=== PATIENT | male | born 1990 | race Caucasian/White ===

== ENCOUNTER 2018-05-29 19:06 | Emergency (ER) | payer OTHER ==
[2018-05-29] MEDS ORDERED: Albuterol/Ipratropium 3.0-0.5 MG/3 ML Neb Soln NEB ONE (19:22)
--- NOTE | 2018-05-29 19:28 | EDM.PDOC ---
ED HPI GENERAL MEDICAL PROBLEM - General Chief Complaint: Respiratory Problem Stated Complaint: SOB,COUGH Time Seen by Provider: 05/29/18 19:26 Source of Information: Reports: Patient History Limitations: Reports: No Limitations - History of Present Illness INITIAL COMMENTS - FREE TEXT/NARRATIVE: HISTORY AND PHYSICAL: History of present illness: Patient is a 27-year-old male here with complaint of cough, shortness of breath , sore throat, nasal congestion, chills x 4 days. He states that the cough and shortness of breath started today. He reports a history of asthma although he has not had an asthma attack in 5 years and does not have an inhaler. He denies any nausea or vomiting but states he had a little bit of diarrhea yesterday. He denies any chest pain. Review of systems: As per history of present illness and below otherwise all systems reviewed and negative. Past medical history: As per history of present illness and as reviewed below otherwise noncontributory. Surgical history: As per history of present illness and as reviewed below otherwise noncontributory. Social history: No reported history of drug or alcohol abuse. Family history: As per history of present illness and as reviewed below otherwise noncontributory. Physical exam: General: Patient sitting comfortably in no acute distress and nontoxic appearing HEENT: Atraumatic, normocephalic, pupils reactive, negative for conjunctival pallor or scleral icterus, mucous membranes moist, throat clear, neck supple, nontender, trachea midline. No meningeal signs. Lungs: Breath sounds diminished with expiratory wheezing throughout all lung aguero, breath sounds equal bilaterally, chest nontender. Heart: S1S2, regular, negative for clicks, rubs, or overt murmur. Abdomen: Soft, nondistended, nontender. Negative for masses or hepatosplenomegaly. Negative for costovertebral tenderness. Pelvis: Stable nontender. Genitourinary: Deferred. Rectal: Deferred. Extremities: Atraumatic, negative for cords or calf pain. Neurovascular unremarkable. Neuro: Awake, alert, oriented. Cranial nerves II through XII unremarkable. Cerebellum unremarkable. Motor and sensory unremarkable throughout. Exam nonfocal. Notes: Diagnostics: Chest x-ray Therapeutics: DuoNeb Prescriptions: Ventolin inhaler Impression: Acute bronchitis Plan: 1. Use inhaler as directed. Tylenol or Motrin as needed 2. Follow-up with primary care provider 3. Return to ED as needed as discussed Definitive disposition and diagnosis as appropriate pending reevaluation and review of above. body Pain Score (Numeric/FACES): 4 - Related Data Allergies Allergy/AdvReac Type Severity Reaction Status Date / Time No Known Allergies Allergy Verified 05/29/18 19:19 Home Meds: Home Meds Albuterol [Ventolin HFA] 1 puff .XX ASDIRECTED #1 inhaler 05/29/18 [Rx] Past Medical History Respiratory History: Reports: Asthma - Past Surgical History Male Surgical History: Reports: Nephrectomy Social & Family History - Family History Family Medical History: Noncontributory - Tobacco Use Smoking Status *Q: Former Smoker Used Tobacco, but Quit: Yes Month/Year Tobacco Last Used: 1 - Recreational Drug Use Recreational Drug Use: No ED ROS GENERAL - Review of Systems Review Of Systems: ROS reveals no pertinent complaints other than HPI. ED EXAM, GENERAL - Physical Exam Exam: See Below (see dictation) Course - Vital Signs Last Recorded V/S: Last Vital Signs Temp 36.6 C 05/29/18 19:06 Pulse 83 05/29/18 19:06 Resp 20 05/29/18 19:06 BP 133/80 05/29/18 19:06 Pulse Ox 98 05/29/18 19:06 - Orders/Labs/Meds Orders: Active Orders 24 hr Category Date Time Status RT Aerosol Therapy [RC] ASDIRECTED Care 05/29/18 19:22 Active Chest 1V Frontal [CR] Stat Exams 05/29/18 19:24 Taken Meds: Medications Discontinued Medications Generic Name Dose Route Start Last Admin Trade Name Evelin PRN Reason Stop Dose Admin Albuterol/Ipratropium 3 ml 05/29/18 19:22 05/29/18 19:29 Duoneb 3.0-0.5 Mg/3 Ml NEB 05/29/18 19:23 3 ml ONETIME ONE Administration Departure - Departure Time of Disposition: 20:30 Disposition: Home, Self-Care 01 Condition: Good Clinical Impression: Acute bronchitis - Discharge Information Prescriptions: Albuterol [Ventolin HFA] 1 puff .XX ASDIRECTED #1 inhaler Forms: ED Department Discharge Additional Instructions: The following information is given to patients seen in the emergency department who are being discharged to home. This information is to outline your options for follow-up care. We provide all patients seen in our emergency department with a follow-up referral. The need for follow-up, as well as the timing and circumstances, are variable depending upon the specifics of your emergency department visit. If you don't have a primary care physician on staff, we will provide you with a referral. We always advise you to contact your personal physician following an emergency department visit to inform them of the circumstance of the visit and for follow-up with them and/or the need for any referrals to a consulting specialist. The emergency department will also refer you to a specialist when appropriate. This referral assures that you have the opportunity for follow-up care with a specialist. All of these measure are taken in an effort to provide you with optimal care, which includes your follow-up. Under all circumstances we always encourage you to contact your private physician who remains a resource for coordinating your care. When calling for follow-up care, please make the office aware that this follow-up is from your recent emergency room visit. If for any reason you are refused follow-up, please contact the [facility] Emergency Department at and asked to speak to the emergency department charge nurse. [facility] [address] [place] [address] [address] 1. Use inhaler as directed. Tylenol or Motrin as needed 2. Follow-up with primary care provider 3. Return to ED as needed as discusse - My Orders Last 24 Hours: My Active Orders 05/29/18 19:22 RT Aerosol Therapy [RC] ASDIRECTED 05/29/18 19:24 Chest 1V Frontal [CR] Stat - Assessment/Plan Last 24 Hours: My Active Orders 05/29/18 19:22 RT Aerosol Therapy [RC] ASDIRECTED 05/29/18 19:24 Chest 1V Frontal [CR] Stat
--- NOTE | 2018-05-31 12:07 | CR ---
EXAM DATE: 05/29/18 PATIENT'S AGE: 27 Patient: KALYN MONTANA Facility: [place], [place] Site . Site : 1990 Study: XRay Chest [id number]/25/2018 7:55:50 PM Ordering Physician: Doctor Sanders Final Report: INDICATION: pain/sob/cough INDICATION: Shortness of breath. Cough. TECHNIQUE: Chest 1 view. COMPARISON: None FINDINGS: Cardiovascular and mediastinum: Heart size and vasculature are normal in caliber and appearance. Mediastinum is within normal limits. Lungs and pleural space: Lungs are clear. No sign of infiltrate or mass. No sign of pleural effusion. No pneumothorax. Bones and soft tissues: No significant findings. IMPRESSION: Lungs are clear. Dictated by Epifanio Rios MD @ 05/29/2018 8:02:08 PM Dictated by: Epifanio Rios MD @ 05/29/2018 20:02:17 (Electronic Signature) Report Signed by Proxy. EVE
== END 2018-05-29 20:37 | disposition home or self-care (01) ==
LOC: MW.ED 19:06
DX: J20.9 Acute bronchitis, unspecified (principal); Z87.891 Personal history of nicotine dependence
CPT/HCPCS: 71045; 71045-26; 87081; 87880-QW; 94640; 99285-25; J7620-GY

== ENCOUNTER 2019-04-01 07:35 | Day surgery (SDC) | payer OTHER ==
[~2019-04-01 07:35] MED LIST: Lactated Ringers 1,000 ML IV SCH
--- NOTE | 2019-04-01 08:28 | PCM.PREANE ---
Preanesthetic Assessment - Anesthesia/Transfusion/Family Hx Anesthesia History: Prior Anesthesia Without Reaction Family History of Anesthesia Reaction: No Transfusion History: No Prior Transfusion(s) - Review of Systems General: No Symptoms Pulmonary: No Symptoms Gastrointestinal: No Symptoms Neurological: No Symptoms Other: Reports: None - Physical Assessment NPO Status Date: 03/31/19 Height: 5 ft 11 in Weight: 89.358 kg ASA Class: 2 Airway Class: Mallampati = 2 Dentition: Reports: Broken Tooth/Teeth, Caries ROM/Head Extension: Full Lungs: Clear to Auscultation, Normal Respiratory Effort Cardiovascular: Regular Rate, Regular Rhythm - Allergies Allergies/Adverse Reactions: Allergies Allergy/AdvReac Type Severity Reaction Status Date / Time Penicillins Allergy Anaphylactic Verified 03/30/19 11:46 Shock - Blood Blood Available: No - Anesthesia Plan Pre-Op Medication Ordered: None - Acknowledgements Anesthesia Type Planned: General Anesthesia Pt an Appropriate Candidate for the Planned Anesthesia: Yes Alternatives and Risks of Anesthesia Discussed w Pt/Guardian: Yes Pt/Guardian Understands and Agrees with Anesthesia Plan: Yes Additional Comments: anes prob list: asthma, last exac 2 months ago, had oral steroids x 5 days at that time PLAN: tiva PreAnesthesia Questionnaire Respiratory History: Reports: Asthma Gastrointestinal History: Reports: GERD Genitourinary History: Reports: Renal Calculus, Renal Disease Musculoskeletal History: Reports: Fracture Other Musculoskeletal History: hx of fx wrist - Past Surgical History Female Surgical History: Male Surgical History: Reports: Lithotripsy (ESWL), Nephrectomy Other Male Surgeries/Procedures: hx of right Nephrectomy for non-functioning kidney - SUBSTANCE USE Smoking Status *Q: Current Every Day Smoker Tobacco Use Within Last Twelve Months: Cigarettes, Smokeless Tobacco Recreational Drug Use History: No - HOME MEDS Home Medications: Home Meds Albuterol [Ventolin HFA] 1 puff INH ASDIRECTED PRN 03/30/19 [History] Fluticasone/Vilanterol [Breo Ellipta 100-25 MCG Inhalation Kit] 1 inh INH DAILY 03/30/19 [History] Ipratropium/Albuterol Sulfate [Iprat-Albut 0.5-3(2.5) mg/3 ml] 1 dose NEB ASDIRECTED PRN 03/30/19 [History] - CURRENT (IN HOUSE) MEDS Current Meds: Current Medications Lactated Ringer's (Ringers, Lactated) 1,000 mls @ 125 mls/hr IV ASDIRECTED JUAN DAVID
[2019-04-01] MEDS ORDERED: Midazolam 1 MG/ML 2 ML SDV ONE (08:45)
[2019-04-01] MEDS ORDERED: Propofol 200 MG/20 ML SDV ONE (08:45)
[2019-04-01] MEDS ORDERED: Benzocaine 20% Topical Spray UD MUCMEM ONE (09:19)
--- NOTE | 2019-04-01 09:36 | PCM.OPNOTE ---
- General Post-Op/Procedure Note Date of Surgery/Procedure: 04/01/19 Operative Procedure(s): egd w bx Findings: see [id number] Pre Op Diagnosis: gerd Post-Op Diagnosis: Same Anesthesia Technique: Moderate Sedation Primary Surgeon: Aamir Hodge Pathology: egd bx Complications: None Condition: Good
--- NOTE | 2019-04-01 11:40 | OR ---
SURGEON: Aamir Hodge MD DATE OF PROCEDURE: 04/01/2019 PREOPERATIVE DIAGNOSIS: Acid reflux. POSTOPERATIVE DIAGNOSIS: Acid reflux. PROCEDURE PERFORMED: Esophagogastroduodenoscopy with biopsy. DESCRIPTION OF PROCEDURE: EGD: The patient was taken to the endoscopy room, and with the CUTTER OPERATOR BRICK, Diprivan was administered. A well-lubricated EGD scope was gently inserted through the oropharynx, down the esophagus, passing through the gastroesophageal junction, into the stomach. The mucosa was examined upon the passage. Any etiology will be noted. Once in the stomach, we continued to advance to the distal antrum, passed through the pylorus into the second portion of the duodenum. Again, the mucosa was examined for any abnormality and etiology. The scope was then retrieved back to the stomach and then retroflexed to look at the fundus of the stomach. If a biopsy was indicated, we will biopsy the antrum, body, and gastroesophageal junction. The air will be sucked out while the scope is retrieved to reduce the patient's discomfort. The patient tolerated the procedure well. There were no intraoperative complications. Dr. Hodge was present through the whole procedure. Prior to surgery, a time-out had been called, the patient identified, procedure identified and antibiotic administered. FINDINGS: 1. The patient is easily sedated with CUTTER OPERATOR BRICK and Diprivan, the patient is soundly snoring. 2. The patient's proximal esophagus and oropharynx are free of disease, stricture, or inflammation. Distal esophagus at distance of 32 shows significant salmon-colored change, consistent with acid reflux. Stomach rugae are pretty flat and also possible atrophic. Antrum is a little bit inflamed. Duodenum was grossly normal. Retrieved back to the stomach. Retroflexed look at the fundus of stomach, there was no hiatal hernia. Biopsy done at antrum, body, and GE junction at 32 and sucked out the gas while scope pulling out. GINI / JOHANA /[id number]
== END 2019-04-01 10:30 | disposition home or self-care (01) ==
LOC: MW.SDS 07:35
PROVIDERS: ATTEND Surgery
DX: K21.0 Gastro-esophageal reflux disease with esophagitis (principal); K29.50 Unspecified chronic gastritis without bleeding; J45.909 Unspecified asthma, uncomplicated; F17.220 Nicotine dependence, chewing tobacco, uncomplicated; Z88.0 Allergy status to penicillin; Z79.51 Long term (current) use of inhaled steroids; Z79.899 Other long term (current) drug therapy
CPT/HCPCS: A9270-GY; J2250; J2704; J7120

== ENCOUNTER 2020-05-23 19:30 | Emergency (ER) | payer OTHER ==
--- NOTE | 2020-05-23 20:51 | CR ---
z left foot: 2 views of the left foot were obtained. Comparison: No prior left foot exam is available. Fracture is identified involving the corner base of the distal phalanx of the 1st toe. Borders of this appear fairly smooth and this is most likely due to an old ununited injury. No acute fracture or other abnormality is appreciated. Impression: 1. 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 2. 2 view left foot study is otherwise unremarkable. Diagnostic code #3 This report was dictated in MDT
--- NOTE | 2020-05-23 20:51 | CR ---
Left ankle: 3 views left ankle were obtained. Comparison: No previous study. Soft tissue swelling is seen laterally. Ankle mortise is symmetric. No acute fracture, dislocation or other bony abnormality is appreciated. Impression: 1. Soft tissue swelling. 2. No acute bony abnormality is identified on left ankle exam. Diagnostic code #1 This report was dictated in MDT
--- NOTE | 2020-05-23 21:16 | EDM.PDOC ---
ED HPI GENERAL MEDICAL PROBLEM - General Chief Complaint: Lower Extremity Injury/Pain Stated Complaint: INJURED ANKLE Time Seen by Provider: 05/23/20 19:34 Source of Information: Reports: Patient History Limitations: Reports: No Limitations - History of Present Illness INITIAL COMMENTS - FREE TEXT/NARRATIVE: HISTORY AND PHYSICAL: History of present illness: Patient is a 29-year-old male who presents to the ED today with concern of left ankle injury that occurred 2 days ago. Patient states he was walking down his stairs when he missed the last 2 steps and twisted his left ankle. Patient states he did not completely fall and caught himself. Patient states since then he has been having left ankle pain and swelling. Patient states that he has been able to walk on it and has continued to work despite the injury. Patient denies any other symptoms or concerns. Patient denies fever, chills, chest pain, shortness of breath, or cough. Denies headache, neck stiff ness, change in vision, syncope, or near syncope. Denies nausea, vomiting, abdominal pain, diarrhea, constipation, or dysuria. Has not noted any blood in urine or stool. Patient has been eating and drinking a ppropriately. Review of systems: As per history of present illness and below otherwise all systems reviewed and negative. Past medical history: As per history of present illness and as reviewed below otherwise noncontributory. Surgical history: As per history of present illness and as reviewed below otherwise noncontributory. Social history: See social history for further information Family history: As per history of present illness and as reviewed below otherwise noncontributory. Physical exam: General: Patient is alert, oriented, and in no acute distress. Patient sitting comfortably on exam table. HEENT: Atraumatic, normocephalic, pupils equal and reactive bilaterally, negative for conjunctival pallor or scleral icterus, mucous membranes moist, TMs normal bilaterally, throat clear, neck supple, nontender, trachea midline. No drooling or trismus noted. No meningeal signs. No hot potato voice noted. Lungs: Clear to auscultation, breath sounds equal bilaterally, chest nontender. Heart: S1S2, regular rate and rhythm without overt murmur Abdomen: Soft, nondistended, nontender. Negative for masses or hepatosplenomegaly. Negative for costovertebral tenderness. Pelvis: Stable nontender. Genitourinary: Deferred. Rectal: Deferred. Skin: Intact, warm, dry. No lesions or rashes noted. Extremities: The lateral malleolus of the left ankle is moderately edematous with purple bruising of this area. Patient does have pain to palpation of the lateral malleolus and limited range of motion of the left ankle due to pain. Patient does have full range of motion of all digits of the left lower extremity as well as the left knee without pain or deficit. Dorsalis pedis and posterior tibial pulses are grossly intact of the left lower extremity with capillary refill less than 2 seconds. Otherwise, atraumatic, negative for cords or calf pain. Neurovascular unremarkable. Neuro: Awake, alert, oriented. Cranial nerves II through XII unremarkable. Cerebellum unremarkable. Motor and sensory unremarkable throughout. Exam nonfocal. Notes: Discussed importance for follow-up with primary care provider. Voices understanding and is agreeable to plan of care. Denies any further quest ions or concerns at this time. Diagnostics: Foot and ankle x-ray Therapeutics: Patient declines Prescription: None Impression: Left ankle injury Plan: 1. Rest, ice, elevate the affected extremity. You can apply ice 15 minutes on, 15 minutes off. 2. Tylenol and/or Ibuprofen as directed for pain management or discomfort. 3. Follow up with the primary care provider as discussed. Return to the ED as needed and as discussed. Definitive disposition and diagnosis as appropriate pending reevaluation and review of above. left ankle/foot Pain Score (Numeric/FACES): 7 - Related Data Allergies Allergy/AdvReac Type Severity Reaction Status Date / Time Penicillins Allergy Anaphylactic Verified 05/23/20 19:50 Shock Home Meds: Home Meds Albuterol [Ventolin HFA] 1 puff INH ASDIRECTED PRN 03/30/19 [History] Fluticasone/Vilanterol [Breo Ellipta 100-25 MCG Inhalation Kit] 1 inh INH DAILY 03/30/19 [History] Past Medical History HEENT History: Reports: None Cardiovascular History: Reports: None Respiratory History: Reports: Asthma Gastrointestinal History: Reports: GERD Genitourinary History: Reports: Renal Calculus, Renal Disease Musculoskeletal History: Reports: Fracture Other Musculoskeletal History: hx of fx wrist Neurological History: Reports: None Psychiatric History: Reports: None Endocrine/Metabolic History: Reports: None Insulin Pump Model and Benefits Clerk: None Hematologic History: Reports: None Immunologic History: Reports: None Oncologic (Cancer) History: Reports: None Dermatologic History: Reports: None - Infectious Disease History Infectious Disease History: Reports: None - Past Surgical History Head Surgeries/Procedures: Reports: None Male Surgical History: Reports: Lithotripsy (ESWL), Nephrectomy Other Male Surgeries/Procedures: hx of right Nephrectomy for non-functioning kidney Social & Family History - Family History Family Medical History: Noncontributory - Tobacco Use Smoking Status *Q: Never Smoker - Caffeine Use Caffeine Use: Reports: Coffee - Recreational Drug Use Recreational Drug Use: No Review of Systems - Review of Systems Review Of Systems: Comprehensive ROS is negative, except as noted in HPI. ED EXAM, GENERAL - Physical Exam Exam: See Below (see dictation) Course - Vital Signs Last Recorded V/S: Last Vital Signs Temp 98.2 F 05/23/20 19:51 Pulse 95 05/23/20 19:51 Resp 18 05/23/20 19:51 BP 119/69 05/23/20 19:51 Pulse Ox 98 05/23/20 19:51 Departure - Departure Time of Disposition: 21:12 Disposition: Home, Self-Care 01 Clinical Impression: Ankle injury Qualifiers: Encounter type: initial encounter Laterality: left Qualified Code(s): S99.912A - Unspecified injury of left ankle, initial encounter - Discharge Information Referrals: PCP,None [Primary Care Provider] - Additional Instructions: The following information is given to patients seen in the emergency department who are being discharged to home. This information is to outline your options for follow-up care. We provide all patients seen in our emergency department with a follow-up referral. The need for follow-up, as well as the timing and circumstances, are variable depending upon the specifics of your emergency department visit. If you don't have a primary care physician on staff, we will provide you with a referral. We always advise you to contact your personal physician following an emergency department visit to inform them of the circumstance of the visit and for follow-up with them and/or the need for any referrals to a consulting specialist. The emergency department will also refer you to a specialist when appropriate. This referral assures that you have the opportunity for follow-up care with a specialist. All of these measure are taken in an effort to provide you with optimal care, which includes your follow-up. Under all circumstances we always encourage you to contact your private physician who remains a resource for coordinating your care. When calling for follow-up care, please make the office aware that this follow-up is from your recent emergency room visit. If for any reason you are refused follow-up, please contact the [facility] Emergency Department at and asked to speak to the emergency department charge nurse. [facility] [address] [place] [id number] [facility] [address] [place] [id number] 1. Rest, ice, elevate the affected extremity. You can apply ice 15 minutes on, 15 minutes off. 2. Tylenol and/or Ibuprofen as directed for pain management or discomfort. 3. Follow up with the primary care provider as discussed. Return to the ED as needed and as discussed. Sepsis Event Note (ED) - Evaluation Sepsis Screening Result: No Definite Risk - Focused Exam Vital Signs: Vital Signs Temp Pulse Resp BP Pulse Ox 05/23/20 19:51 98.2 F 95 18 119/69 98
== END 2020-05-23 21:40 | disposition home or self-care (01) ==
LOC: MW.ED 19:30
DX: S90.02XA Contusion of left ankle, initial encounter (principal); J45.909 Unspecified asthma, uncomplicated; Z88.0 Allergy status to penicillin; Z79.899 Other long term (current) drug therapy; X50.1XXA Overexertion from prolonged static or awkward postures, initial encounter
CPT/HCPCS: 73610-26-LT; 73610-LT; 73620-26-LT; 73620-LT; 99283-25

== ENCOUNTER 2021-01-30 18:26 | Emergency (ER) | payer BC ==
--- NOTE | 2021-01-30 19:04 | EDM.PDOC ---
ED HPI GENERAL MEDICAL PROBLEM - General Chief Complaint: Skin Complaint Stated Complaint: IV ANTIBIOTICS NEEDED Time Seen by Provider: 01/30/21 18:45 Source of Information: Reports: Patient History Limitations: Reports: No Limitations - History of Present Illness INITIAL COMMENTS - FREE TEXT/NARRATIVE: HISTORY AND PHYSICAL: History of present illness: The patient is a 30-year-old male who presents to the emergency department after receiving a phone call from his physician that he needed to come to the ER to be admitted for IV antibiotics. The patient states he was seen last with complaints of right-sided sinus tenderness and was started on steroids due to possible asthma flare. The patient states that his right maxillary sinus pain intensified and he returned to the physician on Thursday where he was placed on doxycycline. He took 3 days of doxycycline and returned to see Phuong PETER, who had blood work done and a sinus CT. The patient's WBC is 10.8, sodium 140 potassium 4.2, chloride 103. The sinus CT IMPRESSION: Abscess located along the anterior-lateral right maxilla measuring 1.5 x 0.9 x 1.7 centimeters, arising from a periapical abscess of the right 1st maxillary premolar, tooth 5. Multiple other periapical abscesses as described above. Extensive carious destruction of multiple crowns. He states that he has had a slight headache whi ch he has been treating with Tylenol and Motrin. His last dose of Motrin was at 1:45 this afternoon. Patient denies any fever, chills, change in vision, syncope or near syncope. Denies any chest pain, back pain, shortness of breath or cough. Denies any abdominal pain, nausea, vomiting, diarrhea, constipation or dysuria. Has not noted any blood in urine or stool. Patient has been eating and drinking appropriately. The patient is hemodynamically stable with a blood pressure of 115/84 and a heart rate of 67. He is afebrile @ @ 97.9. Review of systems: As per history of present illness and below otherwise all systems reviewed and negative. Past medical history: As per history of present illness and as reviewed below otherwise noncontributory. Surgical history: As per history of present illness and as reviewed below otherwise noncontributory. Social history: See social history for further information Family history: As per history of present illness and as reviewed below otherwise noncontributory. Physical exam: General: Well developed and well nourished. Alert and orientated x 3. Nontoxic in appearance and in no acute distress. Vital signs are stable and have been reviewed by me. Nursing notes were reviewed. HEENT: Atraumatic, normocephalic, pupils equal and reactive bilaterally, negative for conjunctival pallor or scleral icterus, mucous membranes moist, TMs normal bilaterally, throat clear, neck supple, nontender, trachea midline. Right maxillary sinus tender, edematous with erythema. No noted abscess in oral cavity. No drooling or trismus noted. No meningeal signs. No hot potato voice noted. Lungs: Clear to auscultation bilaterally. No wheezes, rales, or rhonchi. Chest nontender. Normal work of breathing, no accessory muscles used. Heart: S1S2, regular rate and rhythm without overt murmur, gallops, or rubs. No JVD. No peripheral edema Abdomen: Soft, nondistended, nontender. Normoactive bowel sounds. Negative for masses or costovertebral tenderness. Skin: Intact, warm, dry. See HEENT. No lesions or rashes noted. Hematologic: No petechiae or purpra. Mucosa appropriate color and normal nail bed color and refill. Extremities: Atraumatic, moves all extremities per self without difficulty or deficits, negative for cords or calf pain. Neurovascular unremarkable. Neuro: Awake, alert, oriented. Cranial nerves II through XII unremarkable. Cerebellum unremarkable. Motor and sensory unremarkable throughout. Exam nonfocal. Psychiatric: Mood and affect are appropriate. Normal thought process. Answering questions appropriately. Notes: *This patient was seen and evaluated during the 2019 SARS-CoV-2 novel coronavirus pandemic period. Community viral transmission is ongoing at time of this encounter and the emergency department is operating under pandemic response procedures. After examination review of information discussed with the patient the need to call the hospitalist for possible admission. I spoke with Dr. Robles, who suggested the need for an ENT. I then called [facility] call for the ENT on- call. With Dr. Stinson at [facility], who suggested the need for drainage of the abscess and that I needed to get in touch with an oral surgeon. [facility] call placed me in touch with Dr. Ashlyn Walters, your hearing the sinus CT results stated the patient could be placed on Levaquin 500 daily and the use of [place] for pain control could see a dentist in [facility] or could call her office in the morning and schedule an outpatient removal of the tooth. The patient stated his pain was a 9 out of 10 and I treated him with 1 mg Dilaudid and Zofran to prevent nausea. Start the patient on Levaquin here. This this plan with the patient who is agreeable. I have talked with the patient about today's findings, in addition to providing specific details for plan of care. Reassessment at the time of disposition demonstrates that the patient is in no acute distress. The patient is stable for discharge, counseling was provided and we discussed in great detail signs and symptoms that would prompt them to return to the Emergency Department. Medication, follow up and supportive care measures were reviewed and discussed. Voices understanding and is agreeable to plan of care. Denies any further questions or concerns at this time. Therapeutics: IV Dilaudid 1 mg, Zofran 4 mg Prescription: Levaquin 500 mg daily for 14 days and [place] 325 5 mg every 6 hours for pain #12 Impression: Dental Abscess Plan: 1. You were evaluated today on an emergent basis. Your right sided sinus facial swelling and pain and results of your CT after being seen by Phuong Christine. Your blood work was within normal limits. Your CAT scan showed a abscess along your right jaw area which is from an infected tooth. Dr. Maxwell oral surgeon at [facility] recommends starting on levofloxacin 500 mg every 24 hours. And to follow-up with her tomorrow. Her phone number is [phone]. Please call her to establish a follow-up. I will prescribe [place] for pain control. This can cause constipation so x-rays take a stool softener while you are on the [place]. Do not drive or operate machinery 12 hours after taking this. 2. You can alternate Tylenol and ibuprofen as needed for pain and fever management. 3. We encourage you to follow up with your primary care provider and/or recommended specialist in the next few days for re-evaluation and further care/management. 4. If your symptoms should worsen, new symptoms develop or any of the signs and symptoms we discussed should arise please return to the emergency room or call 911 (if needed). Definitive disposition and diagnosis as appropriate pending reevaluation and review of above. Right Lower Jaw Pain Score (Numeric/FACES): 9 - Related Data Allergies Allergy/AdvReac Type Severity Reaction Status Date / Time Penicillins Allergy Anaphylactic Verified 05/23/20 19:50 Shock Home Meds: Home Meds Albuterol [Ventolin HFA] 1 puff INH ASDIRECTED PRN 03/30/19 [History] Fluticasone/Vilanterol [Breo Ellipta 100-25 MCG Inhalation Kit] 1 inh INH DAILY 03/30/19 [History] Acetaminophen [Tylenol Extra Strength] 500 mg PO Q6H PRN 01/30/21 [History] Acetaminophen/HYDROcodone [[place] 325-5 MG] 1 tab PO Q6H #12 tablet 01/30/21 [Rx] Levofloxacin 500 mg PO DAILY 13 Days #13 tablet 01/30/21 [Rx] Past Medical History HEENT History: Reports: None Cardiovascular History: Reports: None Respiratory History: Reports: Asthma Gastrointestinal History: Reports: GERD Genitourinary History: Reports: Renal Calculus, Renal Disease Musculoskeletal History: Reports: Fracture Other Musculoskeletal History: hx of fx wrist Neurological History: Reports: None Psychiatric History: Reports: None Endocrine/Metabolic History: Reports: None Insulin Pump Model and Experimental Assembler: None Hematologic History: Reports: None Immunologic History: Reports: None Oncologic (Cancer) History: Reports: None Dermatologic History: Reports: None - Infectious Disease History Infectious Disease History: Reports: None - Past Surgical History Head Surgeries/Procedures: Reports: None Male Surgical History: Reports: Lithotripsy (ESWL), Nephrectomy Other Male Surgeries/Procedures: hx of right Nephrectomy for non-functioning kidney Social & Family History - Family History Family Medical History: No Pertinent Family History - Caffeine Use Caffeine Use: Reports: Coffee ED ROS GENERAL - Review of Systems Review Of Systems: Comprehensive ROS is negative, except as noted in HPI. ED EXAM, SKIN/RASH Exam: See Below (See dictation) Course - Vital Signs Last Recorded V/S: Last Vital Signs Temp 97.2 F 01/30/21 20:10 Pulse 62 01/30/21 20:10 Resp 18 01/30/21 20:10 BP 110/78 01/30/21 20:10 Pulse Ox 97 01/30/21 20:10 - Orders/Labs/Meds Meds: Medications Discontinued Medications Generic Name Dose Route Start Last Admin Trade Name Freq PRN Reason Stop Dose Admin Hydromorphone HCl 1 mg 01/30/21 19:37 01/30/21 19:53 Hydromorphone 1 Mg/Ml Syringe IVPUSH 01/30/21 19:38 1 mg ONETIME ONE Administration Levofloxacin 500 mg 01/30/21 19:44 01/30/21 19:53 Levofloxacin 500 Mg Tab PO 01/30/21 19:45 500 mg ONETIME STA Administration Ondansetron HCl 4 mg 01/30/21 19:37 01/30/21 19:53 Ondansetron 4 Mg/2 Ml Sdv IVPUSH 01/30/21 19:38 4 mg ONETIME ONE Administration Departure - Departure Time of Disposition: 19:45 Disposition: Home, Self-Care 01 Condition: Good Clinical Impression: Dental abscess - Discharge Information *PRESCRIPTION DRUG MONITORING PROGRAM REVIEWED*: No *COPY OF PRESCRIPTION DRUG MONITORING REPORT IN PATIENT PUJA: No Prescriptions: Levofloxacin 500 mg PO DAILY 13 Days #13 tablet Acetaminophen/HYDROcodone [[place] 325-5 MG] 1 tab PO Q6H #12 tablet Instructions: Dental Abscess Referrals: PCP,None [Primary Care Provider] - Forms: ED Department Discharge Additional Instructions: The following information is given to patients seen in the emergency department who are being discharged to home. This information is to outline your options for follow-up care. We provide all patients seen in our emergency department with a follow-up referral. The need for follow-up, as well as the timing and circumstances, are variable depending upon the specifics of your emergency department visit. If you don't have a primary care physician on staff, we will provide you with a referral. We always advise you to contact your personal physician following an emergency department visit to inform them of the circumstance of the visit and for follow-up with them and/or the need for any referrals to a consulting specialist. The emergency department will also refer you to a specialist when appropriate. This referral assures that you have the opportunity for follow-up care with a specialist. All of these measure are taken in an effort to provide you with optimal care, which includes your follow-up. Under all circumstances we always encourage you to contact your private physician who remains a resource for coordinating your care. When calling for follow-up care, please make the office aware that this follow-up is from your recent emergency room visit. If for any reason you are refused follow-up, please contact the [facility] Emergency Department at and asked to speak to the emergency department charge nurse. [facility] [address] [place] [id number] [facility] [address] [place] [address] Plan: 1. You were evaluated today on an emergent basis. Your right sided sinus facial swelling and pain and results of your CT after being seen by Phuong Christine. Your blood work was within normal limits. Your CAT scan showed a abscess along your right jaw area which is from an infected tooth. Dr. Maxwell oral surgeon at [facility] recommends starting on levofloxacin 500 mg every 24 hours. And to follow-up with her tomorrow. Her phone number is [phone]. Please call her to establish a follow-up. I will prescribe [place] for pain control. This can cause constipation so x-rays take a stool softener while you are on the [place]. Do not drive or operate machinery 12 hours after taking this. 2. You can alternate Tylenol and ibuprofen as needed for pain and fever management. 3. We encourage you to follow up with your primary care provider and/or recommended specialist in the next few days for re-evaluation and further care/management. 4. If your symptoms should worsen, new symptoms develop or any of the signs and symptoms we discussed should arise please return to the emergency room or call 101 (if needed).
[2021-01-30] MEDS ORDERED: Ondansetron 4 MG/2 ML SDV IVPUSH ONE (19:37)
[2021-01-30] MEDS ORDERED: HYDROmorphone 1 MG/ML Syringe IVPUSH ONE (19:37)
[2021-01-30] MEDS ORDERED: Levofloxacin 500 MG Tab PO STA (19:44)
== END 2021-01-30 20:15 | disposition home or self-care (01) ==
LOC: MW.ED 18:26
DX: K04.7 Periapical abscess without sinus (principal); J45.909 Unspecified asthma, uncomplicated; Z88.0 Allergy status to penicillin
CPT/HCPCS: 96374; 96375; 99283; A9270; J1170; J2405

== ENCOUNTER 2022-10-31 09:32 | Emergency (ER) | payer BC ==
[2022-10-31] MEDS ORDERED: Sodium Chloride 0.9% 1,000 ML IV STA (10:20)
== END 2022-10-31 11:41 | disposition home or self-care (01) ==
LOC: MW.ED 09:32
DX: K92.1 Melena (principal); J45.909 Unspecified asthma, uncomplicated; Z88.0 Allergy status to penicillin; Z79.899 Other long term (current) drug therapy
CPT/HCPCS: 36415; 85014; 85018; 87045; 87046; 87338; 87449; 87899; 96360; 99284; J7030; 99283

== ENCOUNTER 2024-11-29 23:04 | Emergency (ER) | payer OTHER, BC ==
[2024-11-30] MEDS: Acetaminophen 500 MG Tab PO ONE (00:08)
[2024-11-30] MEDS: Lidocaine 1% with EPINEPHrine 1:100,000 10 ML MDV INJECT ONE (00:09)
[2024-11-30] MEDS: Ibuprofen 600 MG Tab PO ONE (00:09)
[2024-11-30] MEDS: Bacitracin Oint 1 GM U/D Packet TOP ONE (01:07)
== END 2024-11-30 02:18 | disposition home or self-care (01) ==
LOC: MW.ED 23:04
DX: S01.511A Laceration without foreign body of lip, initial encounter (principal); J45.909 Unspecified asthma, uncomplicated; Z88.0 Allergy status to penicillin; Z79.51 Long term (current) use of inhaled steroids; Z79.899 Other long term (current) drug therapy; W22.8XXA Striking against or struck by other objects, initial encounter; Y93.89 Activity, other specified; Y99.0 Civilian activity done for income or pay
CPT/HCPCS: 12011; 99282; A9270